=== PATIENT | female | born 1965 | race Caucasian/White ===

== ENCOUNTER → 2017-01-01 | Outpatient (CLI) | payer BC | LOC: M WUC 17:41 | PROVIDERS: ATTEND Nurse Practitioner Family | DX: Z13.820 Encounter for screening for osteoporosis (principal) ==

== ENCOUNTER → 2018-07-22 | Outpatient (REF) | payer BC ==
[2018-07-22 14:01] LABS: BASO % 0.6 % (0.0-1.0); EOS # 0.2 10^3/uL (0.0-0.50); EOS % 2.8 % (0.0-3.0); HEMATOCRIT 37.3 % (36.0-47.0); HEMOGLOBIN 12.1 g/dl (12.0-15.5); IMMATURE GRANULOCYTE % 0.8 % (0-3.0); LYMPH % 31.5 % (24.0-44.0); MEAN CORPUSCULAR HEMOGLOBIN 30.2 pg (27.0-33.0); MEAN CORPUSCULAR HGB CONC 32.4 g/dl (32.0-36.5); MONO # 0.5 10^3/uL (0.0-0.8); MONO % 8.1 % (0.0-5.0); NEUTROPHILS # 3.6 10^3/uL (1.8-7.7); NEUTROPHILS % 56.2 % (36.0-66.0); PLATELET COUNT, AUTOMATED 225 10^3/uL (150-450); RED BLOOD COUNT 4.01 10^6/uL (4.00-5.40); RED CELL DISTRIBUTION WIDTH 14.6 % (11.5-14.5); WHITE BLOOD COUNT 6.4 10^3/uL (4.0-10.0)
[2018-07-22 14:42] LABS: ALBUMIN 3.9 GM/DL (3.2-5.2); ALBUMIN/GLOBULIN RATIO 1.11 (1.00-1.93); ALKALINE PHOSPHATASE 65 U/L (45-117); ALT/SGPT 21 U/L (12-78); ANION GAP 7 MEQ/L (8-16); AST/SGOT 14 U/L (7-37); BILIRUBIN,TOTAL 0.3 MG/DL (0.2-1.0); BLOOD UREA NITROGEN 17 MG/DL (7-18); CALCIUM LEVEL 8.8 MG/DL (8.5-10.1); CARBON DIOXIDE LEVEL 26 MEQ/L (21-32); CHLORIDE LEVEL 109 MEQ/L (98-107); CREATININE FOR GFR 0.84 MG/DL (0.55-1.30); GLOMERULAR FILTRATION RATE > 60.0 (>51); GLUCOSE, FASTING 67 MG/DL (70-100); POTASSIUM SERUM 4.1 MEQ/L (3.5-5.1); RHEUMATOID FACTOR QUANT < 10.0 IU/ML (<15.0); SODIUM LEVEL 142 MEQ/L (136-145); TOTAL PROTEIN 7.4 GM/DL (6.4-8.2)
[2018-07-22 15:04] LABS: ERYTHROCYTE SEDIMENTATION RATE 23 mm/hr (0-30)
[2018-07-24 14:14] LABS: ANTI DOUBLE STRAND-DNA AB 1 IU/mL (0-9); ANTINUCLEAR ANTIBODIES DIRECT Negative (Negative); SJOGREN'S ANTI SS-A <0.2 AI (0.0-0.9); SJOGREN'S ANTI SS-B <0.2 AI (0.0-0.9)
[2018-07-28 11:10] LABS: DRVV SCREEN 38.2 SEC
[2018-07-28 11:11] LABS: PTT LUPUS TYPE ANTICOAG SCREEN 0.9 (0-1.2)
== END ==
LOC: M LABNEURO 11:18
DX: R51 Headache (principal); M25.50 Pain in unspecified joint
CPT/HCPCS: 80053

== ENCOUNTER 2018-11-10 14:20 | Emergency (ER) | payer BC ==
[~2018-11-10] VITALS: Ht 154.9 cm; Wt 79.5 kg
[2018-11-10] MEDS ORDERED: ZONI100C2 PO (14:42)
--- NOTE | 2018-11-10 15:14 | REP ---
Clinical: Pain. Fall. Technique: AP and lateral views of the right forearm. Findings: No acute fracture or dislocation. Skeletal structures and joint spaces appear normal. Lateral view suggests soft tissue swelling along the posterior aspect of the mid forearm which may be related to site of trauma. No subcutaneous emphysema or radiodense foreign body. Impression: No acute fracture or dislocation. Mid forearm swelling. Electronically Signed by Nemesio Sharma MD 11/10/2018 03:06 P
[2018-11-10] MEDS ORDERED: IBUP-1022 PO (15:31)
[2018-11-10] MEDS ORDERED: CYCL10TA PO (15:31)
[2018-11-10 15:47] VITALS: BP 127/72
== END 2018-11-10 15:58 | disposition home or self-care (01) ==
LOC: M ED 14:20
DX: S40.021A Contusion of right upper arm, initial encounter (principal); S46.911A Strain of unspecified muscle, fascia and tendon at shoulder and upper arm level, right arm, initial encounter; W19.XXXA Unspecified fall, initial encounter; Y92.009 Unspecified place in unspecified non-institutional (private) residence as the place of occurrence of the external cause

== ENCOUNTER → 2019-09-28 | Outpatient (REF) | payer BC ==
[~2019-09-28] MED LIST: CYCL10TA PO; IBUP-1022 PO; ZONI100C2 PO
[2019-09-28 18:42] LABS: BASO # 0.1 10^3/uL (0.0-0.2); BASO % 0.7 % (0.0-1.0); EOS # 0.2 10^3/uL (0.0-0.5); EOS % 2.5 % (0.0-3.0); HEMATOCRIT 40.3 % (36.0-47.0); LYMPH # 1.9 10^3/uL (1.5-5.0); LYMPH % 25.9 % (24.0-44.0); MEAN CORPUSCULAR HGB CONC 32.3 g/dl (32.0-36.5); MEAN CORPUSCULAR VOLUME 92.9 fl (80.0-96.0); MONO # 0.7 10^3/uL (0.0-0.8); MONO % 9.2 % (0.0-5.0); NEUTROPHILS # 4.4 10^3/uL (1.5-8.5); NEUTROPHILS % 61.4 % (36.0-66.0); PLATELET COUNT, AUTOMATED 269 10^3/uL (150-450); RED BLOOD COUNT 4.34 10^6/uL (4.00-5.40); WHITE BLOOD COUNT 7.2 10^3/uL (4.0-10.0)
[2019-09-28 18:43] LABS: ALBUMIN 3.9 GM/DL (3.2-5.2); BILIRUBIN,TOTAL 0.3 MG/DL (0.2-1.0); CREATININE FOR GFR 1.23 MG/DL (0.55-1.30); GLOMERULAR FILTRATION RATE 48.6 (>51); POTASSIUM SERUM 3.9 MEQ/L (3.5-5.1); TOTAL PROTEIN 7.4 GM/DL (6.4-8.2)
== END ==
LOC: M LABNEURO 14:26
PROVIDERS: ATTEND Psychiatry & Neurology Neurology
DX: Z79.899 Other long term (current) drug therapy (principal); R51 Headache

== ENCOUNTER → 2020-07-03 | Outpatient (CLI) | payer BC ==
[~2020-07-03] MED LIST changes: +CYCL-707 PO; -CYCL10TA PO; +ZONI100C17 PO; -ZONI100C2 PO
[2020-07-03 17:03] LABS: BASO % 0.7 % (0.0-1.0); EOS # 0.2 10^3/uL (0.0-0.5); EOS % 2.5 % (0.0-3.0); HEMATOCRIT 38.9 % (36.0-47.0); HEMOGLOBIN 12.6 g/dl (12.0-15.5); LYMPH % 34.3 % (24.0-44.0); MEAN CORPUSCULAR HEMOGLOBIN 30.7 pg (27.0-33.0); MEAN CORPUSCULAR HGB CONC 32.4 g/dl (32.0-36.5); MEAN CORPUSCULAR VOLUME 94.6 fl (80.0-96.0); MONO # 0.5 10^3/uL (0.0-0.8); MONO % 9.1 % (0.0-5.0); NEUTROPHILS # 3.2 10^3/uL (1.5-8.5); NEUTROPHILS % 53.2 % (36.0-66.0); PLATELET COUNT, AUTOMATED 231 10^3/uL (150-450); RED BLOOD COUNT 4.11 10^6/uL (4.00-5.40); WHITE BLOOD COUNT 5.9 10^3/uL (4.0-10.0)
[2020-07-03 17:27] LABS: ALBUMIN 3.8 GM/DL (3.2-5.2); ALT/SGPT 20 U/L (12-78); BILIRUBIN,TOTAL 0.2 MG/DL (0.2-1.0); BLOOD UREA NITROGEN 20 MG/DL (7-18); CALCIUM LEVEL 8.7 MG/DL (8.5-10.1); CARBON DIOXIDE LEVEL 26 MEQ/L (21-32); CHLORIDE LEVEL 111 MEQ/L (98-107); CREATININE FOR GFR 0.87 MG/DL (0.55-1.30); GLOMERULAR FILTRATION RATE > 60.0 (>51); GLUCOSE, FASTING 75 MG/DL (70-100); POTASSIUM SERUM 4.6 MEQ/L (3.5-5.1); SODIUM LEVEL 142 MEQ/L (136-145); TOTAL PROTEIN 7.1 GM/DL (6.4-8.2)
== END ==
LOC: M WUC 12:11
PROVIDERS: ATTEND Psychiatry & Neurology Neurology
DX: R51 Headache (principal)

== ENCOUNTER → 2023-01-24 | Outpatient (REF) | payer BC ==
[~2023-01-24] MED LIST changes: -ZONI100C17 PO; +ZONI100C67 PO
== END ==
LOC: M LAB REF 12:03
PROVIDERS: ATTEND Internal Medicine
DX: E03.9 Hypothyroidism, unspecified (principal)

== ENCOUNTER 2023-04-23 15:17 | Emergency (ER) | payer BC ==
[~2023-04-23] VITALS: Ht 154.9 cm; Wt 72.6 kg
[2023-04-23] MEDS ORDERED: ASPIRIN 81MG CHEW TABLET PO ONE (15:45)
[2023-04-23] MEDS: NITROGLYCERIN 0.4MG SUBL TABLET SL PRN ×2 (16:10→16:58)
[2023-04-23 16:11] LABS: BASO # 0.1 10^3/uL (0.0-0.2); BASO % 0.8 % (0.0-1.0); EOS # 0.2 10^3/uL (0.0-0.5); EOS % 3.3 % (0.0-3.0); HEMOGLOBIN 12.3 g/dl (12.0-15.5); LYMPH # 2.3 10^3/uL (1.5-5.0); LYMPH % 36.5 % (24.0-44.0); MEAN CORPUSCULAR HEMOGLOBIN 31.4 pg (27.0-33.0); MEAN CORPUSCULAR HGB CONC 33.2 g/dl (32.0-36.5); MEAN CORPUSCULAR VOLUME 94.4 fl (80.0-96.0); MONO # 0.6 10^3/uL (0.0-0.8); MONO % 8.9 % (2.0-8.0); NEUTROPHILS # 3.2 10^3/uL (1.5-8.5); NEUTROPHILS % 50.3 % (36.0-66.0); PLATELET COUNT, AUTOMATED 211 10^3/uL (150-450); RED BLOOD COUNT 3.92 10^6/uL (4.00-5.40); WHITE BLOOD COUNT 6.3 10^3/uL (4.0-10.0)
[2023-04-23 16:13] LABS: LIPASE 38 U/L (12-53)
[2023-04-23 16:15] LABS: ALKALINE PHOSPHATASE 69 U/L (46-116); ALT/SGPT 15 U/L (7.0-40); AST/SGOT 13 U/L (<34); BILIRUBIN,DIRECT < 0.1 MG/DL (<0.4); BILIRUBIN,TOTAL 0.3 MG/DL (0.3-1.2); BLOOD UREA NITROGEN 13 MG/DL (9-23); CALCIUM LEVEL 8.4 MG/DL (8.5-10.1); CARBON DIOXIDE LEVEL 25 MMOL/L (20-31); CHLORIDE LEVEL 109 MMOL/L (98-107); CK-MB VALUE MASS < 1.0 NG/ML (<3.6); CREATININE FOR GFR 0.78 MG/DL (0.55-1.30); GLOMERULAR FILTRATION RATE > 60.0 (>51); GLUCOSE, FASTING 108 MG/DL (60-100); POTASSIUM SERUM 3.4 MMOL/L (3.5-5.1); SODIUM LEVEL 141 MMOL/L (136-145); TOTAL PROTEIN 6.4 G/DL (5.7-8.2)
[2023-04-23 16:21] LABS: CPK CREATINE PHOSPHOKINASE 97 U/L (34-145); MB/CK RELATIVE INDEX 1.03 (< OR =4)
[2023-04-23 16:58] VITALS: BP 121/73
[2023-04-23] MEDS ORDERED: PANTOPRAZOLE 40MG VIAL IV ONE (17:00)
[2023-04-23] MEDS ORDERED: SUCRALFATE SUSP 1GM/10ML UD PO ONE (17:00)
[2023-04-23] MEDS ORDERED: ISOVUE-370 76% 100ML VIAL As Ordered ONE (17:12)
[2023-04-23 17:41] LABS: CK-MB VALUE MASS < 1.0 NG/ML (<3.6)
[2023-04-23 17:44] LABS: CPK CREATINE PHOSPHOKINASE 90 U/L (34-145); MB/CK RELATIVE INDEX 1.11 (< OR =4)
[2023-04-23 19:36] LABS: CK-MB VALUE MASS < 1.0 NG/ML (<3.6)
[2023-04-23 19:42] LABS: CPK CREATINE PHOSPHOKINASE 83 U/L (34-145)
[2023-04-23 20:45] VITALS: BP 136/85; TEMP 98.2; O2SAT 97
== END 2023-04-23 21:07 | disposition home or self-care (01) ==
LOC: EDBD 15:17 → M ED 15:17
DX: R07.9 Chest pain, unspecified (principal); R53.81 Other malaise; R11.0 Nausea; R42 Dizziness and giddiness
CPT/HCPCS: 71045; 71275; 80048; 80076; 82550; 82553; 83690; 84443; 84484; 85025; 85379; 93005; 93041; 94760; 96374; 99285; C9113; Q9967

== ENCOUNTER → 2023-04-30 | Outpatient (REF) | payer BC | LOC: M LAB REF 12:33 | PROVIDERS: ATTEND Internal Medicine | DX: E83.51 Hypocalcemia (principal) ==

== ENCOUNTER 2023-08-18 06:08 | Observation (INO) | payer BC ==
[~2023-08-18] VITALS: Ht 154.9 cm; Wt 63.6 kg
[~2023-08-18 06:08] MED LIST changes: +HEPARIN SOD (PORCINE) 5000UNITS/ML 1ML VIAL/SYRINGE SQ ONE; +LEVO50TA5 PO; +LEXA1TAB PO; +TRAZ-257 PO; +ceFAZolin SOD 2 GM in IV 1 EA IV ONE
[2023-08-18] MEDS ORDERED: HYDR50TA70 PO (06:40)
[2023-08-18] MEDS ORDERED: LR 1,000 ML IV SCH ×2 (06:40→11:40)
[2023-08-18] MEDS ORDERED: GENTAMICIN SULF 80MG/2ML VIAL As Ordered ONE (07:11)
[2023-08-18] MEDS ORDERED: EPINEPHrine INJ 1 MG/ML 1ML AMP As Ordered ONE ×2 (07:11→07:14)
[2023-08-18] MEDS ORDERED: LIDOCAINE 1% MDV 20ML VIAL As Ordered ONE (07:11)
[2023-08-18] MEDS ORDERED: IBUP1TAB6 PO (07:14)
[2023-08-18] MEDS ORDERED: LIDOCAINE 1% SDV 30ML VIAL As Ordered ONE (07:14)
[2023-08-18] MEDS ORDERED: HOME MED LIST COMPLETE! XX SCH (07:15)
[2023-08-18] MEDS ORDERED: LIDOCAINE 2% 100MG/5ML SDV (FOR ANES.) As Ordered ONE (07:16)
[2023-08-18] MEDS ORDERED: ROCURONIUM BROMIDE 50MG/5ML VIAL As Ordered ONE ×2 (07:16→08:40)
[2023-08-18] MEDS ORDERED: MIDAZOLAM INJ 2MG/2ML VIAL As Ordered ONE (07:17)
[2023-08-18] MEDS ORDERED: fentaNYL 250 MCG/5 ML INJECTION As Ordered ONE (07:17)
[2023-08-18] MEDS ORDERED: ONDANSETRON 4MG 2ML VIAL As Ordered ONE (07:17)
[2023-08-18] MEDS ORDERED: propofoL 200 MG/20 ML VIAL As Ordered ONE (07:17)
[2023-08-18] MEDS ORDERED: SCOPOLAMINE 1MG TRANSDERMAL PATCH TOP ONE (07:40)
[2023-08-18] MEDS ORDERED: dexmedeTOMIDine (4MCG/ML)200MCG/50ML BTL (PRECEDEX) As Ordered ONE (07:41)
[2023-08-18] MEDS ORDERED: LACRILUBE (AKWA TEARS) OPHTH OINT 3.5GM As Ordered ONE (08:37)
[2023-08-18] MEDS ORDERED: SUGAMMADEX SODIUM 500 MG/5 ML VIAL (BRIDION) As Ordered ONE (08:40)
[2023-08-18] MEDS ORDERED: HYDROmorphone HCL 2MG/ML 1ML VIAL As Ordered ONE (08:40)
[2023-08-18] MEDS ORDERED: ACETAMINOPHEN 1000MG 100ML IV BAG As Ordered ONE (08:40)
[2023-08-18] MEDS ORDERED: ePHEDrine SULFATE 25 MG/5 ML(5MG/ML) SYRINGE As Ordered ONE ×2 (09:54→10:06)
[2023-08-18] MEDS ORDERED: PHENYLephrine 500MCG 5ML (100MCG/ML) SYRINGE As Ordered ONE (09:55)
[2023-08-18] MEDS ORDERED: GLYCOPYRROLATE INJ 0.2 MG/ML 2 ML VIAL As Ordered ONE (10:11)
[2023-08-18] MEDS ORDERED: oxyCODONE 5MG TAB PO PRN (11:40)
[2023-08-18] MEDS ORDERED: HYDROMORPHONE HCL 0.5 MG/ 0.5 ML SYRINGE IV PRN (11:40)
[2023-08-18] MEDS ORDERED: ONDANSETRON 4MG 2ML VIAL IV PRN ×2 (11:40→12:15)
[2023-08-18] MEDS ORDERED: fentaNYL 100 MCG/2 ML INJECTION IV PRN (11:40)
[2023-08-18] MEDS ORDERED: traZODone 100 MG TAB PO PRN (12:15)
[2023-08-18] MEDS ORDERED: hydrOXYzine 50 MG TAB PO PRN (12:15)
[2023-08-18] MEDS ORDERED: ACETAMINOPHEN TAB 650MG DOSE (2X325MG) PO PRN (12:15)
[2023-08-18 14:00] VITALS: BP 102/58; TEMP 97; O2SAT 98
[2023-08-18 14:30] VITALS: BP 107/65; TEMP 97.5; O2SAT 96
[2023-08-18] MEDS: traMADol 50 MG TAB PO PRN (15:09)
[2023-08-18] MEDS: LR 1,000 ML IV SCH (15:10)
[2023-08-18 15:30] VITALS: BP 108/65; TEMP 97.6; O2SAT 97
[2023-08-18] MEDS: ceFAZolin SOD 1 GM in D5W MINI-BAG PLUS 50 ML IV SCH (16:03)
[2023-08-18] MEDS: PERCOCET 5MG/325MG TAB PO PRN ×2 (16:12→20:47)
[2023-08-18 16:30] VITALS: BP 97/51; TEMP 97.2; O2SAT 96
[2023-08-18 17:30] VITALS: BP 92/49; TEMP 98.2; O2SAT 98
[2023-08-18] MEDS ORDERED: ESCITALOPRAM OXALATE 10 MG TAB (LEXAPRO) PO SCH (21:00)
[2023-08-18 22:02] VITALS: BP 90/46; TEMP 97; O2SAT 96
[2023-08-19] MEDS: ceFAZolin SOD 1 GM in D5W MINI-BAG PLUS 50 ML IV SCH (00:15)
[2023-08-19] MEDS: PERCOCET 5MG/325MG TAB PO PRN (00:25)
[2023-08-19] MEDS: LR 1,000 ML IV SCH (01:42)
[2023-08-19 02:11] VITALS: BP 87/56; TEMP 97.5; O2SAT 96
[2023-08-19] MEDS: traMADol 50 MG TAB PO PRN (05:12)
[2023-08-19] MEDS ORDERED: LEVOTHYROXINE 50MCG TABLET (0.05MG) PO SCH (06:00)
[2023-08-19 06:53] VITALS: BP 89/57; TEMP 97.7; O2SAT 95
[2023-08-19 08:30] VITALS: BP 88/52
[2023-08-19] MEDS ORDERED: ZONISAMIDE 100 MG CAP (ZONEGRAN) PO SCH (09:00)
[2023-08-19 10:00] VITALS: BP 102/60
[2023-08-19 15:23] VITALS: BP 103/63
[2023-08-19] MEDS ORDERED: TRAM50TA2 PO (16:00)
== END 2023-08-19 16:40 | disposition home or self-care (01) ==
LOC: M SDC 06:08 → M RR INP 06:09 → M MS5PR 13:50
PROVIDERS: ADMIT Plastic Surgery Surgery of the Hand; ATTEND Plastic Surgery Surgery of the Hand
DX: N62 Hypertrophy of breast (principal); M54.6 Pain in thoracic spine; M54.2 Cervicalgia; E03.9 Hypothyroidism, unspecified; F41.9 Anxiety disorder, unspecified; G43.909 Migraine, unspecified, not intractable, without status migrainosus; Z79.899 Other long term (current) drug therapy
CPT/HCPCS: 19318; 87635; 88305; 96365; 96366; 96376; C9290; J0131; J0171; J0665; J0690; J1100; J1170; J1580; J2250; J2371; J2405; J3010

== ENCOUNTER 2024-05-30 13:47 | Emergency (ER) | payer OTHER ==
[~2024-05-30] VITALS: Ht 154.9 cm; Wt 70.9 kg
[~2024-05-30 13:47] MED LIST changes: -HEPARIN SOD (PORCINE) 5000UNITS/ML 1ML VIAL/SYRINGE SQ ONE; +HYDR50TA70 PO; +IBUP1TAB6 PO; +TRAM50TA2 PO; -ceFAZolin SOD 2 GM in IV 1 EA IV ONE
[2024-05-30] MEDS: NS 1,000 ML IV ONE (15:43)
[2024-05-30] MEDS: METOCLOPRAMIDE INJ 10MG/2ML VIAL IV ONE (15:44)
[2024-05-30] MEDS: KETOROLAC 30 MG/ML 1ML VIAL IV ONE (15:44)
[2024-05-30 16:55] VITALS: BP 124/69; TEMP 97.8; O2SAT 97
== END 2024-05-30 17:26 | disposition home or self-care (01) ==
LOC: M ED 13:47
DX: G43.909 Migraine, unspecified, not intractable, without status migrainosus (principal); F41.9 Anxiety disorder, unspecified; F10.10 Alcohol abuse, uncomplicated; Z79.1 Long term (current) use of non-steroidal anti-inflammatories (NSAID); Z79.899 Other long term (current) drug therapy
CPT/HCPCS: 70450; 80047; 96361; 96374; 99284; J1100; J1885; J2765

== ENCOUNTER → 2025-07-04 | Outpatient (REF) | payer OTHER ==
[~2025-07-04] MED LIST changes: -IBUP-1022 PO; -IBUP1TAB6 PO; +IBUP600T42 PO; +SFHIBU600 PO
[2025-07-04 19:35] LABS: C REACTIVE PROTEIN QUANTITATIV < 0.50 MG/DL (<1.0)
[2025-07-04 19:36] LABS: VITAMIN B12 LEVEL 451 PG/ML (211-911)
[2025-07-09 17:38] LABS: LYME TOTAL ANTIBODY CIA <= 0.90 Index (<=0.90)
== END ==
LOC: M LAB REF 17:30
PROVIDERS: ATTEND Internal Medicine
DX: L30.9 Dermatitis, unspecified (principal); R53.83 Other fatigue